=== PATIENT | female | born 1935 ===

== ENCOUNTER 2017-10-30 08:41 | Day surgery (SDC) | payer MEDICARE, OTHER ==
[2017-10-29 11:31] VITALS: BMI 31.5
[2017-10-30] MEDS ORDERED: Propofol 10 mg/ml Inj (20 ML) ONE (10:13)
[2017-10-30] MEDS ORDERED: Lactated Ringer's 1,000 ML IV ONE (10:50)
[2017-10-30 11:52] VITALS: TEMP 97
[2017-10-30 11:55] VITALS: O2SAT 99
[2017-10-30 12:10] VITALS: BP 132/73; PULSE 78; RESP 19
== END 2017-10-30 12:05 | disposition home or self-care (01) ==
LOC: C.ENDO 08:41
PROVIDERS: ATTEND Internal Medicine Gastroenterology
DX: K29.40 Chronic atrophic gastritis without bleeding (principal); K44.9 Diaphragmatic hernia without obstruction or gangrene
CPT/HCPCS: 43239; 88305; 88342; J2001; J2704; J7120